=== PATIENT | male | born 1965 | race Caucasian/White ===

== ENCOUNTER 2018-12-06 17:58 | Emergency (ER) | payer SELFPAY ==
[2018-12-06 18:04] VITALS: BP 142/87; PULSE 70; RESP 12; TEMP 36.9; O2SAT 96
--- NOTE | 2018-12-06 18:46 | W.ED.GENAD ---
Discharge Plan Disposition Patient Disposition: HOME Condition: Fair Discharge Details Chief Complaint: Cellulitis Clinical Impression: Cellulitis of finger of left hand Primary Care Provider: Unknown,Unknown ED Provider: Bernie Chavira Home Meds and New Rx's Prescriptions: New cephalexin [Keflex] 500 mg capsule 500 mg PO QID Qty: 26 RF: 0 sulfamethoxazole-trimethoprim [Bactrim DS] 800-160 mg tablet 1 tab PO Q12H Qty: 12 RF: 0 No Action Ibuprofen [Ibuprofen Ib] 200 MG Tablet 600 mg PO PRN PRNRF: 0 Discharge Instructions Instructions: Cephalexin (By mouth), Sulfamethoxazole/Trimethoprim (By mouth), Cellulitis (ED) Additional Instructions: Encourage rest, ice, elevation. Tylenol and ibuprofen as needed for discomfort. May continue with the brace while pain persist. Please take antibiotics as prescribed. Even if symptoms improve, please take the entire course. You need to be reevaluated in the next 48 hours. I have asked our daycare director contact you with hopes of you having an appointment with primary care physician at that time. If you are unable to be seen by them please return to the emergency department for reevaluation. If you develop fever/chills, spreading of the redness beyond the borders marked, increased pain or other new/worsening symptoms please seek care urgently once again. 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 He reports that one week ago he saw a bug biting his hand and slapped it, believes it was a horse fly. States that since then he has had increasing pain and erythema around the area of bite. He is now having pain extending from the anatomical snuffbox to the distal aspect of the finger along the dorsal side. It is erythematous and swollen and warm to touch. Passive and active flexion extension of the thumb is intact without any signs of discomfort. Do not believe the patient has tenosynovitis or osteomyelitis at this time. He reports he is been afebrile denies any constitutional symptoms. Believe this is likely superficial cellulitis and plan to treat with Keflex and Bactrim. However, given the location I feel the patient needs prompt follow-up. He does not have insurance or primary care physician. I have asked her daycare director to help him establish primary care's that he may be seen within the next 48 hours. I advised that if this is unable to be completed he should return to the emergency department for reevaluation. He was given strict return precautions. All his questions and concerns were addressed and he is in agreement this plan. First dose of Bactrim and Keflex given here today. HPI General Mode of arrival: ambulatory. Date/Time Provider Initiated Documentation: 12/06/18 18:45. Limitations to Documentation: no limitations. Information obtained by: patient and RN notes reviewed. History of Present Illness 53 year old M presents to the emergency department with the chief complaint of left thumb pain, described as moderate, with intensity rated at 5. Quality is described as burning, and is localized to the left and upper extremity. Patient reports no radiation. Patient started experiencing this week(s) (1) and it has been constant. No relieving factors improve symptom(s), Movement worsens symptoms . Patient notes rash (erythema to left thumb); denies fever/chills. Patient did receive the following treatments prior to arrival, none Related Data Home Medications Medication Instructions Recorded Confirmed Ibuprofen [Ibuprofen Ib] 600 mg PO PRN PRN 06/06/17 12/06/18 cephalexin [Keflex] 500 mg PO QID #26 cap 12/06/18 sulfamethoxazole-trimethoprim 1 tab PO Q12H #12 tab 12/06/18 [Bactrim DS] Previous Rx's Medication Instructions Recorded cephalexin [Keflex] 500 mg PO QID #26 cap 12/06/18 sulfamethoxazole-trimethoprim 1 tab PO Q12H #12 tab 12/06/18 [Bactrim DS] Allergies Allergy/AdvReac Type Severity Reaction Status Date / Time No Known Allergies Allergy Unverified 12/06/18 18:06 General Stated Complaint: Cellulitis TRICE: 4 Review of Systems Constitutional Reports as per HPI, Denies chills, Denies fever(s), Denies headache(s) and Denies weakness ENT Denies headache(s) Cardiovascular Reports as per HPI Respiratory Reports as per HPI and Denies cough Musculoskeletal Reports as per HPI and Denies tingling Integumentary/Breasts Reports as per HPI and Reports erythema Neurologic Reports as per HPI, Denies headache(s), Denies tingling, Denies paresthesias and Denies weakness FOR[facility]LY [facility], 1928–1983 Social History Smoking/Tobacco Use Status: Current every day Tobacco Type: cigarettes Alcohol Intake: current Alcohol Intake frequency: 3 or more drinks per day Alcohol type: beer Drug use: Never Substance use type: does not use Do you feel safe at home: Yes Do you feel safe in your relationship?: Yes Exam Const General: cooperative, healthy appearing, comfortable, no acute distress, well developed and well groomed Nutritional Appearance: average body habitus and well nourished Orientation: alert and awake Resp Effort & Inspection: normal respiratory effort, able to speak in complete sentences and no respiratory distress Cardio Rate: regular rate Rhythm: regular rhythm Skin General skin exam: erythema (left thumb) Neuro General: alert and awake Cognition: normal cognition Speech: speech normal Gait: normal gait Motor: muscle tone normal throughout Sensory Exam: no sensory deficits noted Extrem Left upper extremity: normal capillary refill, wrist Details: normal to inspection and normal ROM; no tenderness and no swelling and hand Details: normal capillary refill, neuromotor exam normal, neurosensory exam normal, tendon exam normal Location: of the thumb Details: extensor tendon, tenderness Location: of the dorsal hand and of the thumb (erythema. No pain with flexion/extension both passiveily and actively) Location: at the proximal phalanx and on the dorsal aspect and vascular exam Details: radial pulse present and normal capillary refill Psych Appearance: grossly normal and well kempt Mental Status: mental status grossly normal Speech and Movement: speech and movement normal Course Vital Signs Temperature 36.9 C 12/06/18 18:04 Pulse 70 12/06/18 18:04 Respiratory Rate 12 12/06/18 18:04 Blood Pressure 142/87 H 12/06/18 18:04 Pulse Oximetry 96 12/06/18 18:04 Temperature 36.9 C 12/06/18 18:04 Temperature Source Temporal Artery Scan 12/06/18 18:04 Pulse 70 12/06/18 18:04 Respiratory Rate 12 12/06/18 18:04 Respiratory Effort Non-Labored 12/06/18 18:05 Blood Pressure 142/87 H 12/06/18 18:04 Blood Pressure Position Sitting 12/06/18 18:04 Pulse Oximetry 96 12/06/18 18:04 Oxygen Delivery Method Room Air 12/06/18 18:04 Oxygen Flow Rate 0 12/06/18 18:04 Pain Level 5 12/06/18 18:04
--- NOTE | 2018-12-06 19:01 | ED.GENADUL_ITS ---
Discharge Plan Disposition Patient Disposition: HOME Condition: Fair Discharge Details Chief Complaint: Cellulitis Clinical Impression: Cellulitis of finger of left hand Primary Care Provider: Unknown,Unknown ED Provider: Bernie Chavira Home Meds and New Rx's Prescriptions: New cephalexin [Keflex] 500 mg capsule 500 mg PO QID Qty: 26 RF: 0 sulfamethoxazole-trimethoprim [Bactrim DS] 800-160 mg tablet 1 tab PO Q12H Qty: 12 RF: 0 No Action Ibuprofen [Ibuprofen Ib] 200 MG Tablet 600 mg PO PRN PRNRF: 0 Discharge Instructions Instructions: Cephalexin (By mouth), Sulfamethoxazole/Trimethoprim (By mouth), Cellulitis (ED) Additional Instructions: Encourage rest, ice, elevation. Tylenol and ibuprofen as needed for discomfort. May continue with the brace while pain persist. Please take antibiotics as prescribed. Even if symptoms improve, please take the entire course. You need to be reevaluated in the next 48 hours. I have asked our child care contact you with hopes of you having an appointment with primary care physician at that time. If you are unable to be seen by them please return to the emergency department for reevaluation. If you develop fever/chills, spreading of the redness beyond the borders marked, increased pain or other new/worsening symptoms please seek care urgently once again. 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 He reports that one week ago he saw a bug biting his hand and slapped it, believes it was a horse fly. States that since then he has had increasing pain and erythema around the area of bite. He is now having pain extending from the anatomical snuffbox to the distal aspect of the finger along the dorsal side. It is erythematous and swollen and warm to touch. Passive and active flexion extension of the thumb is intact without any signs of discomfort. Do not believe the patient has tenosynovitis or osteomyelitis at this time. He reports he is been afebrile denies any constitutional symptoms. Believe this is likely superficial cellulitis and plan to treat with Keflex and Bactrim. However, given the location I feel the patient needs prompt follow-up. He does not have insurance or primary care physician. I have asked her child care to help him establish primary care's that he may be seen within the next 48 hours. I advised that if this is unable to be completed he should return to the emergency department for reevaluation. He was given strict return precautions. All his questions and concerns were addressed and he is in agreement this plan. First dose of Bactrim and Keflex given here today. HPI General Mode of arrival: ambulatory . Date/Time Provider Initiated Documentation: 12/06/18 18:45 . Limitations to Documentation: no limitations . Information obtained by: patient and RN notes reviewed . History of Present Illness 53 year old M presents to the emergency department with the chief complaint of left thumb pain, described as moderate, with intensity rated at 5. Quality is described as burning, and is localized to the left and upper extremity. Patient reports no radiation. Patient started experiencing this week(s) (1) and it has been constant. No relieving factors improve symptom(s), Movement worsens symptoms . Patient notes rash (erythema to left thumb); denies fever/chills. Patient did receive the following treatments prior to arrival, none Related Data Home Medications Medication Instructions Recorded Confirmed Ibuprofen [Ibuprofen Ib] 600 mg PO PRN PRN 06/06/17 12/06/18 cephalexin [Keflex] 500 mg PO QID #26 cap 12/06/18 sulfamethoxazole-trimethoprim 1 tab PO Q12H #12 tab 12/06/18 [Bactrim DS] Previous Rx's Medication Instructions Recorded cephalexin [Keflex] 500 mg PO QID #26 cap 12/06/18 sulfamethoxazole-trimethoprim 1 tab PO Q12H #12 tab 12/06/18 [Bactrim DS] Allergies Allergy/AdvReac Type Severity Reaction Status Date / Time No Known Allergies Allergy Unverified 12/06/18 18:06 General Stated Complaint: Cellulitis TRICE: 4 Review of Systems Constitutional Reports as per HPI, Denies chills, Denies fever(s), Denies headache(s) and Denies weakness ENT Denies headache(s) Cardiovascular Reports as per HPI Respiratory Reports as per HPI and Denies cough Musculoskeletal Reports as per HPI and Denies tingling Integumentary/Breasts Reports as per HPI and Reports erythema Neurologic Reports as per HPI, Denies headache(s), Denies tingling, Denies paresthesias and Denies weakness [facility] Social History Smoking/Tobacco Use Status: Current every day Tobacco Type: cigarettes Alcohol Intake: current Alcohol Intake frequency: 3 or more drinks per day Alcohol type: beer Drug use: Never Substance use type: does not use Do you feel safe at home: Yes Do you feel safe in your relationship?: Yes Exam Const General: cooperative, healthy appearing, comfortable, no acute distress, well developed and well groomed Nutritional Appearance: average body habitus and well nourished Orientation: alert and awake Resp Effort & Inspection: normal respiratory effort, able to speak in complete sentences and no respiratory distress Cardio Rate: regular rate Rhythm: regular rhythm Skin General skin exam: erythema (left thumb) Neuro General: alert and awake Cognition: normal cognition Speech: speech normal Gait: normal gait Motor: muscle tone normal throughout Sensory Exam: no sensory deficits noted Extrem Left upper extremity: normal capillary refill, wrist Details: normal to inspection and normal ROM; no tenderness and no swelling and hand Details: normal capillary refill, neuromotor exam normal, neurosensory exam normal, tendon exam normal Location: of the thumb Details: extensor tendon, tenderness Location: of the dorsal hand and of the thumb (erythema. No pain with flexion/extension both passiveily and actively) Location: at the proximal phalanx and on the dorsal aspect and vascular exam Details: radial pulse present and normal capillary refill Psych Appearance: grossly normal and well kempt Mental Status: mental status grossly normal Speech and Movement: speech and movement normal Course Vital Signs Temperature 36.9 C 12/06/18 18:04 Pulse 70 12/06/18 18:04 Respiratory Rate 12 12/06/18 18:04 Blood Pressure 142/87 H 12/06/18 18:04 Pulse Oximetry 96 12/06/18 18:04 Temperature 36.9 C 12/06/18 18:04 Temperature Source Temporal Artery Scan 12/06/18 18:04 Pulse 70 12/06/18 18:04 Respiratory Rate 12 12/06/18 18:04 Respiratory Effort Non-Labored 12/06/18 18:05 Blood Pressure 142/87 H 12/06/18 18:04 Blood Pressure Position Sitting 12/06/18 18:04 Pulse Oximetry 96 12/06/18 18:04 Oxygen Delivery Method Room Air 12/06/18 18:04 Oxygen Flow Rate 0 12/06/18 18:04 Pain Level 5 12/06/18 18:04
[2018-12-06] MEDS: Sulfameth/Trimeth DS TAB 1 TAB PO ×2 (19:26→19:27)
[2018-12-06] MEDS: Cephalexin 500 MG CAP PO ×2 (19:27)
== END 2018-12-06 19:45 | disposition home or self-care (01) ==
PROVIDERS: Emergency Provider Physician Assistant
DX: L03.012 Cellulitis of left finger (principal)
CPT/HCPCS: 99283; L3807